=== PATIENT | female | born 1995 | race Caucasian/White ===

== ENCOUNTER 2016-05-29 05:25 | Emergency (ER) | payer OTHER | END 2016-05-29 06:53 | disposition home or self-care (01) | LOC: FER 05:25 | DX: S93.491A Sprain of other ligament of right ankle, initial encounter (principal); G89.29 Other chronic pain; Z88.5 Allergy status to narcotic agent; Z79.899 Other long term (current) drug therapy; W22.8XXA Striking against or struck by other objects, initial encounter; Y92.009 Unspecified place in unspecified non-institutional (private) residence as the place of occurrence of the external cause | CPT/HCPCS: 73610; 73630; J1170; J2405 ==

== ENCOUNTER 2016-07-28 00:16 | Emergency (ER) | payer OTHER | END 2016-07-28 01:44 | disposition home or self-care (01) | LOC: FER 00:16 | DX: L02.412 Cutaneous abscess of left axilla (principal); E78.5 Hyperlipidemia, unspecified; Z88.5 Allergy status to narcotic agent | CPT/HCPCS: 99283 ==

== ENCOUNTER 2020-03-23 11:18 | Emergency (ER) | payer OTHER ==
[~2020-03-23 11:18] MED LIST: BENADRYL ALLERG25 MG PO; BUSPAR5 MG PO; CEFDINIR300 MG PO; CIPRO500 MG PO; DIFLUCAN150 MG PO; FLOMAX0.4 MG PO; HYDROCORTISONE30 G5 TOP; IBUPROFEN800 MG PO; KETOROLAC TROME10 MG PO; LIPITOR40 MG PO; METFORMIN HCL500 MG PO; NAPROXEN500 MG PO; PHENERGAN25 M1 PO; PREDNISONE 20MG20 MG PO; PYRIDIUM200 MG PO; TRAZODONE HCL50 MG PO; TYLENOL #31 EACH PO; VOLTAREN **OUT75 MG PO; ZOFRAN4 MG PO; ZOLOFT25 MG PO
[2020-03-23 12:39] LABS: BASOPHIL 0.3 % (0-2); EOSINOPHIL 2.6 % (0-5); HCT 40.4 % (37.0-47.0); HGB 13.3 g/dl (12.5-16.0); LYMPHOCYTE 22.3 % (15-48); MCH 32.7 pg (25.0-31.0); MCHC 32.9 g/dL (32.0-36.0); MCV 99.3 fL (78.0-100.0); MONOCYTE 7.6 % (0-12); MPV 8.7 fL (6.0-9.5); NEUTROPHIL 66.8 % (41-80); NRBC 0; PLT 320 K/uL (150-400); RBC 4.07 M/uL (4.20-5.40); RDW 13.3 % (11.5-14.0); WBC 11.2 K/uL (4.0-10.5)
[2020-03-23 14:42] LABS: BILIRUBIN NEGATIVE (NEGATIVE); BLOOD 3+ Ery/uL (NEGATIVE); CLARITY CLEAR (CLEAR); COLOR YELLOW (YELLOW); GLUCOSE (U) TRACE mg/dL (NORMAL); LEUKOCYTES NEGATIVE Leu/uL (NEGATIVE); NITRITE NEGATIVE (NEGATIVE); PROTEIN NEGATIVE (NEGATIVE); SPECIFIC GRAVITY 1.025 (1.001-1.030); UROBILINOGEN 0.2 mg/dL (0.2-1.0)
[2020-03-23 14:48] LABS: URINARY RBC 20-50; URINARY WBC RARE
== END 2020-03-23 15:20 | disposition home or self-care (01) ==
LOC: FER 11:18
PROVIDERS: Emergency Medicine
DX: O20.0 Threatened abortion (principal); O24.911 Unspecified diabetes mellitus in pregnancy, first trimester; Z87.891 Personal history of nicotine dependence; Z88.5 Allergy status to narcotic agent; Z79.84 Long term (current) use of oral hypoglycemic drugs; Z3A.09 9 weeks gestation of pregnancy
CPT/HCPCS: 36415; 81001; 84702; 85025; 99284; Q0169

== ENCOUNTER 2020-06-26 22:47 | Emergency (ER) | payer OTHER | END 2020-06-27 01:55 | disposition home or self-care (01) | LOC: FER 22:47 | DX: O9A.212 Injury, poisoning and certain other consequences of external causes complicating pregnancy, second trimester (principal); S60.221A Contusion of right hand, initial encounter; O24.912 Unspecified diabetes mellitus in pregnancy, second trimester; Z79.4 Long term (current) use of insulin; Z88.5 Allergy status to narcotic agent; W22.01XA Walked into wall, initial encounter; Y92.009 Unspecified place in unspecified non-institutional (private) residence as the place of occurrence of the external cause; Z3A.23 23 weeks gestation of pregnancy | CPT/HCPCS: 73130 ==

== ENCOUNTER 2020-08-09 02:55 | Emergency (ER) | payer OTHER | END 2020-08-09 04:12 | disposition home or self-care (01) | LOC: FER 02:55 | DX: O9A.213 Injury, poisoning and certain other consequences of external causes complicating pregnancy, third trimester (principal); L27.0 Generalized skin eruption due to drugs and medicaments taken internally; T39.015A Adverse effect of aspirin, initial encounter; Z88.5 Allergy status to narcotic agent; Z3A.29 29 weeks gestation of pregnancy | CPT/HCPCS: J1200; J2405 ==

== ENCOUNTER 2020-08-23 00:07 | Emergency (ER) | payer OTHER ==
[2020-08-23 01:17] LABS: BASOPHIL 0.1 % (0-2); EOSINOPHIL 1.5 % (0-5); HCT 38.1 % (37.0-47.0); HGB 13.2 g/dl (12.5-16.0); LYMPHOCYTE 26.3 % (15-48); MCH 33.3 pg (25.0-31.0); MCHC 34.6 g/dL (32.0-36.0); MCV 96.2 fL (78.0-100.0); MONOCYTE 7.6 % (0-12); NEUTROPHIL 63.9 % (41-80); NRBC 0; PLT 337 K/uL (150-400); RBC 3.96 M/uL (4.20-5.40); RDW 13.3 % (11.5-14.0); WBC 13.8 K/uL (4.0-10.5)
[2020-08-23 01:20] LABS: BILIRUBIN NEGATIVE (NEGATIVE); BLOOD NEGATIVE Ery/uL (NEGATIVE); CLARITY CLEAR (CLEAR); GLUCOSE (U) NORMAL (NORMAL); LEUKOCYTES TRACE Leu/uL (NEGATIVE); NITRITE NEGATIVE (NEGATIVE); PROTEIN NEGATIVE (NEGATIVE); SPECIFIC GRAVITY <=1.005 (1.001-1.030); UROBILINOGEN 0.2 mg/dL (0.2-1.0); pH 6.5 (5.0-9.0)
[2020-08-23 01:25] LABS: COLOR STRAW (YELLOW)
[2020-08-23 01:26] LABS: BACTERIA TRACE
[2020-08-23 01:35] LABS: ALBUMIN 2.8 g/dL (3.4-5.0); BILIRUBIN - TOTAL 0.2 mg/dL (0.2-1.0); CREATININE 0.43 mg/dL (0.51-0.95); FT4 (FREE T4) 0.98 ng/dL (0.76-1.46); GLOBULIN (CALCULATION) 4.2 g/dL; POTASSIUM 3.9 mmol/L (3.5-5.1)
[2020-08-23] MEDS ORDERED: CEPHALEXIN500 M1 PO (02:46)
== END 2020-08-23 03:01 | disposition home or self-care (01) ==
LOC: FER 00:07
PROVIDERS: Emergency Medicine Emergency Medical Services
DX: O99.891 Other specified diseases and conditions complicating pregnancy (principal); R00.0 Tachycardia, unspecified; R82.71 Bacteriuria; O24.913 Unspecified diabetes mellitus in pregnancy, third trimester; Z79.4 Long term (current) use of insulin; Z88.5 Allergy status to narcotic agent; Z88.8 Allergy status to other drugs, medicaments and biological substances; Z3A.31 31 weeks gestation of pregnancy
CPT/HCPCS: 36415; 71045; 80053; 81001; 82009; 82550; 84439; 84443; 84484; 85025; 93005

== ENCOUNTER 2021-02-23 09:34 | Emergency (ER) | payer OTHER ==
[~2021-02-23 09:34] MED LIST changes: +CEPHALEXIN500 M1 PO
[2021-02-23 12:00] LABS: BASOPHIL 0.2 % (0-2); EOSINOPHIL 0.9 % (0-5); HCT 50.8 % (37.0-47.0); HGB 17.6 g/dl (12.5-16.0); LYMPHOCYTE 14.4 % (15-48); MCH 32.1 pg (25.0-31.0); MCHC 34.6 g/dL (32.0-36.0); MCV 92.7 fL (78.0-100.0); MPV 9.3 fL (6.0-9.5); NRBC 0; PLT 316 K/uL (150-400); RBC 5.48 M/uL (4.20-5.40); RDW 13.2 % (11.5-14.0); WBC 9.1 K/uL (4.0-10.5)
[2021-02-23 12:04] LABS: BILIRUBIN 1+ mg/dL (NEGATIVE); BLOOD 3+ Ery/uL (NEGATIVE); CLARITY CLOUDY (CLEAR); COLOR YELLOW (YELLOW); GLUCOSE (U) 3+ mg/dL (NORMAL); LEUKOCYTES NEGATIVE Leu/uL (NEGATIVE); NITRITE NEGATIVE (NEGATIVE); PROTEIN 1+ mg/dL (NEGATIVE); SPECIFIC GRAVITY 1.025 (1.001-1.030); UROBILINOGEN 0.2 mg/dL (0.2-1.0)
[2021-02-23 12:08] LABS: BACTERIA 1+; URINARY RBC 20-50
[2021-02-23 12:13] LABS: BILIRUBIN - TOTAL 0.6 mg/dL (0.2-1.0); BUN/CREAT RATIO (CALC) 15.4 RATIO; CREATININE 0.52 mg/dL (0.51-0.95); POTASSIUM 4.2 mmol/L (3.5-5.1)
[2021-02-23] MEDS ORDERED: OXY-IR 5MG5 MG PO (14:20)
[2021-02-23] MEDS ORDERED: PHENERGAN12.5 M1 PO (14:20)
[2021-02-23] MEDS ORDERED: BACTRIM DS TAB1 EAC1 PO (14:25)
== END 2021-02-23 14:55 | disposition home or self-care (01) ==
LOC: FER 09:34
PROVIDERS: Emergency Medicine
DX: N39.0 Urinary tract infection, site not specified (principal); N83.201 Unspecified ovarian cyst, right side; E11.9 Type 2 diabetes mellitus without complications; F17.200 Nicotine dependence, unspecified, uncomplicated; Z88.5 Allergy status to narcotic agent
CPT/HCPCS: 36415; 80053; 81001; 83690; 85025; J1170; J1885; J2405; J7030

== ENCOUNTER 2021-03-11 14:40 | Emergency (ER) | payer OTHER ==
[~2021-03-11 14:40] MED LIST changes: +BACTRIM DS TAB1 EAC1 PO; +OXY-IR 5MG5 MG PO; +PHENERGAN12.5 M1 PO
[2021-03-11 17:29] LABS: BILIRUBIN NEGATIVE (NEGATIVE); BLOOD 3+ Ery/uL (NEGATIVE); CLARITY CLEAR (CLEAR); COLOR YELLOW (YELLOW); GLUCOSE (U) 3+ mg/dL (NORMAL); LEUKOCYTES NEGATIVE Leu/uL (NEGATIVE); NITRITE NEGATIVE (NEGATIVE); PROTEIN NEGATIVE (NEGATIVE); SPECIFIC GRAVITY 1.015 (1.001-1.030); UROBILINOGEN 0.2 mg/dL (0.2-1.0)
[2021-03-11 17:43] LABS: BACTERIA TRACE; URINARY WBC RARE
[2021-03-11] MEDS ORDERED: CLEOCIN300 MG PO (18:17)
== END 2021-03-11 20:20 | disposition home or self-care (01) ==
LOC: FER 14:40
PROVIDERS: Internal Medicine
DX: N61.1 Abscess of the breast and nipple (principal); F17.210 Nicotine dependence, cigarettes, uncomplicated; E11.9 Type 2 diabetes mellitus without complications; Z88.1 Allergy status to other antibiotic agents; Z88.5 Allergy status to narcotic agent; Z88.6 Allergy status to analgesic agent
CPT/HCPCS: 81001; 87070; 87205; 96365; 96375; 96376; J1170; J2405; J7030